=== PATIENT | female | born 1975 | race Caucasian/White ===

== ENCOUNTER 2016-06-17 23:50 | Inpatient (IN) | payer OTHER ==
--- NOTE | ~2016-06-17 | PN ---
Unit #: [id number] #: [id number] Patient: SHAWNA MOLINA [id number] [facility] [address] [place] [address] [id number] MR#: [id number] NAME: SHAWNA MOLINA ROOM: [facility] Age: 40 Sex: F Admission Date: 06/17/2016 : 1975 Attending Physician: Bubba Hoyt M.D. Admitting Physician: Bubba Hoyt M.D. Primary Care Physician: Generic Doctor Not In System [facility] PROGRESS NOTES DATE 06/20/2016 DISCUSSION Shawna Molina is a 40-year-old female, seen on 06/20/2016. The patient interviewed, chart reviewed, and obtained information from the nursing staff. The patient was compliant and cooperative, sad, depressed, withdrawn, isolative, and guarded but reports making progress. No side effects from medications. REVIEW OF SYSTEMS Complete review of systems unremarkable. MENTAL STATUS EXAMINATION General appearance: Patient casually dressed. Attention span and concentration, fair. Oriented to place and person. Mood and affect, sad and depressed. Speech, regular rate. Thought process, goal-directed. Association, the patient denied any thoughts of harming self or others but guarded. Recent and remote memory, poor. Insight and judgment, poor. DIAGNOSES 1. Mood disorder, NOS. 2. Polysubstance abuse. ASSESSMENT/PLAN Advised to continue with the current medication and therapeutic protocol and will monitor response to medication, and make further adjustment of medication with a plan to transition the patient into substance abuse program. Dictated by... Noemi Curiel/mary TD: 06/22/2016 07:52 JOB #: [id number] Unit #: [id number] #: [id number] Patient: SHAWNA MOLINA [facility] PROGRESS NOTES X Bubba Hoyt MD PROGRESS NOTE
--- NOTE | ~2016-06-17 | DS ---
Unit #: [id number] #: [id number] Patient: HERBERT SHOEMAKER [id number] [place] [address] [id number] I MR#: [id number] NAME: HERBERT SHOEMAKER ROOM: [facility] Age: 40 Sex: F Admission Date: 06/17/2016 : 1975 Discharge Date: 06/21/2016 Attending Physician: Bubba Hoyt M.D. Primary Care Physician: Generic Doctor Not In System DISCHARGE SUMMARY REASON FOR ADMISSION Detox from alcohol and other drugs. DIAGNOSTIC STUDIES LABORATORY RESULTS: Remarkable for glucose 112, total protein 5.9, and albumin 2.8. RBC 3.51. test negative. Urine drug screen is positive for benzodiazepine, opioid, and TCA. HOSPITAL COURSE The patient was admitted to inpatient unit on 06/17/2016 and discharged on 06/21/2016. The patient was treated on the inpatient unit with detox protocol, detox monitoring, chemical dependency group, expressive therapy, psychoeducation, and psychotherapy. The patient responded well with the above modalities of treatment and subsequently, the patient was discharged with a plan to follow up in outpatient clinic. DISCHARGE MEDICATIONS None. DISCHARGE DIAGNOSES Psychiatric: 1. Opioid use disorder, severe, F11.20. 2. Mood disorder, not otherwise specified, F32.9. Secondary diagnosis: Deferred. Medical diagnosis: None. Stressors: Psychosocial stressors. DISCHARGE INSTRUCTIONS The patient is to follow up in outpatient clinic as per social work administrator. CONDITION ON DISCHARGE The patient was pleasant and cooperative. Denied any psychotic symptom or any suicidal ideation. PROGNOSIS Guarded. DIET AND ACTIVITY As tolerated. Unit #: [id number] #: [id number] Patient: HERBERT SHOEMAKER Dictated by... Noemi Curiel/simon TD: 06/21/2016 22:16 JOB #: [id number] DISCHARGE SUMMARY X Bubba Hoyt MD X DISCHARGE SUMMARY
--- NOTE | ~2016-06-17 | PN ---
Unit #: [id number] #: [id number] Patient: SHAWNA MOLINA [id number] [facility] [address] [place] [address] [id number] I MR#: [id number] NAME: SHAWNA MOLINA ROOM: [facility] Age: 40 Sex: F Admission Date: 06/17/2016 : 1975 Attending Physician: Bubba Hoyt M.D. Admitting Physician: Bubba Hoyt M.D. Primary Care Physician: Generic Doctor Not In System [facility] PROGRESS NOTES DATE OF SERVICE 06/19/2016 DISCUSSION Ms. Shawna Molina is a 40-year-old female seen on 06/19/2016. The patient interviewed, chart reviewed. Obtained information from nursing staff. The patient reported that she is still having withdrawal symptom. Anxious, nervous, withdrawn, isolative, restlessness, severe anxiety, trouble sleeping, mood lability. Complete Review of Systems: Unremarkable. MENTAL STATUS EXAMINATION General Appearance: The patient dressed casually. Attention span, concentration: Fair. Oriented in time, place, and person. Mood and affect: Sad, dysphoric, anxious. Speech: Regular rate. Thought process: Goal-directed. The patient denied any thoughts of harming self or others or any psychotic symptom, but isolative, guarded. Recent and remote memory: Poor. Insight and judgment: Poor. DIAGNOSIS Polysubstance abuse and withdrawal. ASSESSMENT/PLAN Advised to continue with current detox protocol. Continue with the inpatient programing. If needed, consider further adjustment of medication. Dictated by... Noemi Curiel/gregory TD: 06/21/2016 09:26 JOB #: [id number] Unit #: [id number] #: [id number] Patient: SHAWNA MOLINA [facility] PROGRESS NOTES X Bubba Hoyt MD PROGRESS NOTE
--- NOTE | ~2016-06-17 | HP ---
Unit #: [id number] #: [id number] Patient: HERBERT SHOEMAKER [id number] [place] [address] [id number] I MR#: [id number] NAME: HERBERT SHOEMAKER ROOM: 74 Age: 40 Sex: F Admission Date: 06/17/2016 : 1975 Attending Physician: Bubba Hoyt M.D. Admitting Physician: Bubba Hoyt M.D. Primary Care Physician: Generic Doctor Not In System HISTORY AND PHYSICAL HISTORY OF PRESENT ILLNESS The patient is a 40-year-old female admitted to [facility] on 06/17/2016 to withdrawal from heroin. PAST MEDICAL HISTORY 1. Hepatitis C. 2. Hypertension. 3. Nicotine dependence. 4. Drug abuse. PAST SURGICAL HISTORY 1. Cholecystectomy. 2. Tonsillectomy. 3. I & D of an abscess. SOCIAL HISTORY The patient is unemployed and homeless. She smokes two packs of cigarettes daily, uses one gram of heroin per day and methamphetamines infrequently. FAMILY MEDICAL HISTORY Noncontributory. ALLERGIES No known drug allergies. CURRENT MEDICATIONS Include Neurontin, trazodone, Risperdal and Inderal. REVIEW OF SYSTEMS CONSTITUTIONAL: No fever or chills. HEENT: Denies any sore throat, ear pain or runny nose. CARDIOVASCULAR: Denies chest pain, irregular heart rhythm or palpitations. CHEST: Denies shortness of breath or cough. No hemoptysis. GASTROINTESTINAL: Denies nausea, vomiting, diarrhea or chronic constipation. ENDOCRINE: Denies history of increased thirst or urination. No recent significant weight loss or gain. GENITOURINARY: Denies dysuria, frequency, or hematuria. SKIN: Denies any rashes. HEMATOLOGIC: Denies history of increased bleeding or bruising. MUSCULOSKELETAL: Denies any hot, swollen joints. No generalized muscle pain. Unit #: [id number] #: [id number] Patient: HERBERT SHOEMAKER NEUROLOGIC: Denies problems with vision or speech. No frequent, severe headaches. No numbness, tingling or weakness in any extremities. Denies loss of bladder or bowel control. PHYSICAL EXAM GENERAL: She is awake, alert and oriented in no acute distress. VITAL SIGNS: Temperature 98.2, heart rate 83, respiration 19, blood pressure 110/79. HEIGHT: 5'7". WEIGHT: 170 pounds. SKIN: Warm and dry without rash or lesion. HEENT: Normocephalic. TMs not viewed. Oral and nasal passages clear. Conjunctivae clear. PERRLA. EOMs intact. NECK: Supple without lymphadenopathy or thyromegaly. HEART: Regular rate and rhythm without murmur. LUNGS: Clear. ABDOMEN: Soft, nontender. : Not done. EXTREMITIES: No evidence of cyanosis, clubbing or edema. Moves all without focal deficit. NEUROLOGICAL: Grossly within normal limits. Cranial Nerves: II: Visual lopez are intact. III, IV AND : Extraocular movements are intact. Pupils are equal, round and reactive to light. V: Facial sensation is grossly normal. VII: Facial movements and expression are normal. VIII: Auditory acuity grossly intact. IX, X: Uvula is midline. Phonation is normal. XI: Patient shrugs shoulders and turns head normally. XII: Tongue protrudes in the midline. Sensory and Motor Function: Sensory and motor sensation is grossly normal. Motor: moves all extremities well. IMPRESSION 1. Psychiatric admission. 2. Hepatitis C. 3. Hypertension. 4. Nicotine dependence. 5. Drug abuse. RECOMMENDATIONS Psychiatric per psychiatrist. MEDICAL: No contraindication to participate in facility activities. MEDICAL PROGNOSIS Good. MEDICAL CONDITION Stable. Dictated by... Roshni Oglesby A.P.R.N. Unit #: [id number] #: [id number] Patient: HERBERT SHOEMAKER CHRISTINE/amelia TD: 06/19/2016 03:36 JOB #: [id number] HISTORY AND PHYSICAL X ROSHNI OGLESBY APRN X HISTORY AND PHYSICAL
--- NOTE | ~2016-06-17 | PA ---
Unit #: [id number] #: [id number] Patient: SHAWNA SHOEMAKER [id number] [facility] [address] [place] [address] [id number] I MR#: [id number] NAME: SHAWNA SHOEMAKER ROOM: [facility] Age: 40 Sex: F Admission Date: 06/17/2016 : 1975 Date of Assessment: 06/18/2016 Attending Physician: Bubba Hoyt M.D. Admitting Physician: Bubba Hoyt M.D. Primary Care Physician: Generic Doctor Not In System PSYCHIATRIC ASSESSMENT INFORMANTS The patient reliability, fair informant and chart reliability, good. CHIEF COMPLAINT Detox. HISTORY OF PRESENT ILLNESS Ms. Shawna Feng is a 40-year-old female, seen on . The patient presented with the above-mentioned complaint. The patient has a history of previous admission at [facility], and [facility] in the past. The patient currently homeless. The patient presented with IV heroin use about 1 g a day. The patient reported that escalating use, overdosing twice. The patient reported boyfriend was scared to call EMS. The patient's boyfriend tried to perform CPR. The patient responded. The patient was afraid. Denied any suicidal or homicidal ideation. The patient admitted to making threats. The patient reports that she fears that [facility]. Reported anxiety, restlessness, depression, feelings of hopelessness and worthlessness, needing inpatient admission at this time for psychiatric stabilization. PAST PSYCHIATRIC HISTORY Remarkable for history of previous treatment at [facility] on 05/03/2016 and 05/05/2016. [facility] FAMILY HISTORY AND SOCIAL HISTORY The patient currently homeless. No known history of any abuse. MEDICAL HISTORY Unremarkable for any chronic medical illness. Musculoskeletal; muscle strength and tone, no atrophy or abnormal movement. Gait normal. MEDICATION HISTORY The patient was on Risperdal; currently, on no medication. ALLERGIES No known drug allergies. SUBSTANCE ABUSE HISTORY Remarkable for history of tobacco use, age of onset 11; alcohol, age of onset 11; marijuana, age of onset 11; opioid, age of onset 34; amphetamine, age of onset 26; and methadone, age of onset 39. History of blackout and HIV. History of withdrawal symptom and drug use. Currently, Unit #: [id number] #: [id number] Patient: SHAWNA SHOEMAKER reporting vomiting, diarrhea, withdrawal symptom, restlessness, rhinorrhea, sleep problem, and tremor. REVIEW OF SYSTEMS HEENT: Eyes, clear. Ears, nose, mouth, and throat; clear. CARDIOVASCULAR: Unremarkable. RESPIRATORY: Unremarkable. GI: Unremarkable. : Unremarkable. SKIN: Unremarkable. LYMPH NODE: Unremarkable. NEUROLOGIC: Unremarkable. ENDOCRINE: Unremarkable. HEMATOLOGIC: Unremarkable. ALLERGIC/IMMUNOLOGIC: Unremarkable. MUSCULOSKELETAL: Muscle strength and tone, no atrophy or abnormal movement. Gait normal. MENTAL STATUS EXAMINATION CONSTITUTIONAL: Measurement of vital signs; temperature 98.2, heart rate 89, respiratory rate 19, blood pressure 99/55, height 5 feet 7 inches, and weight 170 pounds. GENERAL APPEARANCE: The patient dressed casually. The patient did not show any facial deformity. MUSCULOSKELETAL: Please see above. PSYCHIATRIC EXAMINATION Description of speech; regular rate, normal volume, normal articulation, and coherent. Description of thought process, goal directed. Description of association, intact. Description of thought process, goal directed. Description of abnormal psychotic thinking; the patient denied any hallucination or delusions. Mood lability, sad, depressed, anxious, and substance abuse. Description of the patient's judgment; concerning everyday activity, poor. Social situation, poor. Concerning psychiatric condition, poor. Complete mental status examination; oriented in time, place, and person. Recent and remote memory, fair. Attention span and concentration, fair. Language, able to name object and repeat phrases. Fund of knowledge, aware of current event and passive vocabulary intact. Mood and affect, sad and dysphoric. Insight and judgment, fair to poor. ASSETS AND LIABILITIES Assets, the patient is articulate and able to take care of her ADL. Liability, history of substance abuse. ADMITTING DIAGNOSES Psychiatric: Opioid use disorder, severe, F11.20 and mood disorder, not otherwise specified, F32.9. Secondary diagnosis: Deferred. Medical diagnosis: None. Stressors: Psychosocial stressors. PSYCHIATRIC PLAN AND TREATMENT GOAL AND DISCHARGE PLAN 1. Advised to admit the patient on the inpatient unit. Provide safe, Unit #: [id number] #: [id number] Patient: SHAWNA SHOEMAKER supportive, and structured environment. 2. Ordered labs; CBC, CMP, UA, and UDS. 3. The patient was started on detox protocol and detox monitoring. Advised Desyrel 100 mg at bedtime. TREATMENT GOAL To attain euthymic mood, gain insight into her problem, and learn coping skills. DISCHARGE PLAN Plan to stabilize the patient and consider followup in outpatient program. ESTIMATED LENGTH OF STAY 5 days. Dictated by... Noemi Curiel/simon TD: 06/18/2016 18:43 JOB #: [id number] PSYCHIATRIC ASSESSMENT X Bubba Hoyt MD PSYCHIATRIC ASSESSMENT
[2016-06-18 12:34] LABS: BASOPHIL% 0.4 % (0-2.5); DIFF IND NO; EOSINOPHIL# 0.3 X10e3 (0-0.7); EOSINOPHIL% 3.8 % (0.0-7.0); HEMATOCRIT 36.7 % (35.0-45.0); HEMOGLOBIN 12.2 gm/dL (12.0-16.0); LYMPHOCYTE# 2.2 X10e3 (1.0-3.5); LYMPHOCYTE% 30.2 % (17.0-45.0); MEAN CELL VOLUME 104.7 FL (83-96); MEAN CORPUSCULAR HEMOGLOBIN 34.9 PG (28-34); MEAN CORPUSCULAR HGB CONC 33.3 g/dL (30-36); MEAN PLATELET VOLUME 9.4 FL (6.5-11.5); MONOCYTE# 0.9 X10e3 (0-1.0); MONOCYTE% 11.7 % (3.0-12.0); NEUTROPHIL% 53.9 % (40-75); PLATELET COUNT 194 X10e3 (140-420); RED BLOOD COUNT 3.51 X10e (3.90-5.30); RED CELL DISTRIBUTION WIDTH 14.1 % (11.0-15.5); WHITE BLOOD COUNT 7.4 X10e3 (4.0-10.5)
[2016-06-18 13:05] LABS: URINE APPEARANCE TURBID; URINE BILIRUBIN NEG (NEG); URINE BLOOD TRACE (NEG); URINE COLOR YELLOW; URINE GLUCOSE NEG (NEG); URINE KETONE NEG (NEG); URINE LEUKOCYTE ESTERASE 3+ (NEG); URINE NITRATE NEG (NEG); URINE PROTEIN TRACE (NEG); URINE SPECIFIC GRAVITY 1.023 (1.003-1.035); URINE UROBILINOGEN 0.2 MG/DL (NEG)
[2016-06-18 13:05] LABS: ALBUMIN SERUM 2.8 g/dL (3.5-5.0); ALKALINE PHOSPHATASE 64 U/L (32-92); ALT (SGPT) 32 U/L (10-40); AST (SGOT) 27 U/L (10-42); BILIRUBIN,TOTAL 0.4 mg/dL (0.2-2.0); BLOOD UREA NITROGEN 15 mg/dL (9-23); CALCIUM SERUM 8.4 mg/dL (8.4-10.2); CARBON DIOXIDE 28 mmol/L (22-31); CHLORIDE 105 mmol/L (100-111); CREATININE SERUM 0.6 mg/dL (0.6-1.4); GLOM FILT RATE Estimated ABOVE60 mL/min (>60); GLUCOSE FASTING 112 mg/dL (70-110); POTASSIUM 4.1 mmol/L (3.5-5.1); PROTEIN TOTAL SERUM 5.9 g/dL (6.0-8.3); SODIUM 137 mmol/L (135-145)
[2016-06-18 13:09] LABS: THYROID STIMULATING HORMONE 1.02 uIU/ml (0.34-5.60)
[2016-06-18 13:10] LABS: URINE BACTERIA AUWI 4+ (NEGATIVE); URINE SQUAMOUS EPITHELIAL CELL MANY /[HPF]; UWBCS1 AUWI INNUM (0-5)
[2016-06-18 13:15] LABS: U HYALINE CASTS AUWI 0-2 /[LPF]
[2016-06-18 13:16] LABS: FREE THYROXIN (T4) 0.82 ng/dL (0.58-1.64)
[2016-06-18 13:22] LABS: AMPHETAMINE NEG (NEG); BARBITURATES NEG (NEG); BENZODIAZEPINES POS (NEG); COCAINE NEG (NEG); MARIJUANA NEG (NEG); OPIATES POS (NEG); TRICYCLIC ANTIDEPRESSANTS POS (NEG); U METHADONE NEG (NEG)
== END 2016-06-21 09:33 | disposition home or self-care (01) | DRG 897 ==
LOC: P1E 23:50
PROVIDERS: Psychiatry & Neurology Psychiatry
PROC: HZ2ZZZZ Detoxification Services for Substance Abuse Treatment (ICD-10-PCS; principal; 2016-06-18)
PROC: 3E0234Z Introduction of Serum, Toxoid and Vaccine into Muscle, Percutaneous Approach (ICD-10-PCS; 2016-06-19)
DX: F11.20 Opioid dependence, uncomplicated (principal); F39 Unspecified mood [affective] disorder; I10 Essential (primary) hypertension; B19.20 Unspecified viral hepatitis C without hepatic coma; F17.210 Nicotine dependence, cigarettes, uncomplicated; Z90.49 Acquired absence of other specified parts of digestive tract; Z59.0 Homelessness; Z23 Encounter for immunization
CPT/HCPCS: 80053; 80307; 81003; 84439; 84443; 84703; 85025; 86592; 90688